=== PATIENT | male | born 1970 | race Caucasian/White ===

== ENCOUNTER 2020-01-17 11:07 | Emergency (ER) | payer MEDICARE, MEDICAID ==
--- NOTE | 2020-01-17 11:26 | EDM.PDOC ---
ED HPI GENERAL MEDICAL PROBLEM - General Chief Complaint: Chest Pain Stated Complaint: CHEST PAIN Time Seen by Provider: 01/17/20 11:13 Source of Information: Reports: Patient History Limitations: Reports: Other - History of Present Illness INITIAL COMMENTS - FREE TEXT/NARRATIVE: 49-year-old male presents with midsternal reproducible chest wall pain today. Pain is reproducible with palpation, mild, nonradiating, nonexertional. History is limited secondary to her intellectual disability. ROS: Limited secondary to intellectual disability PHYSICAL EXAM General: AOx4, GCS = 15, No distress HEENT: dry mucous membrane Neck: supple, no meningismus, no Kernig or Brudzinski Cardiac: S1S2 RRR chest wall: midsternal chest wall tenderness, 100% reproducible Respiratory: CTAB, no crackles or rales, no wheezing Abdomen: Soft, nontender, no rebound or guarding, nondistended, no pulsatile mass. Back: nontender Musculoskeletal: NVI distally, no deformity Neuro: No focal deficits, CN 2 - 12 WNL. chest pain Pain Score (Numeric/FACES): 6 - Related Data Allergies Allergy/AdvReac Type Severity Reaction Status Date / Time No Known Allergies Allergy Verified 01/17/20 11:21 Home Meds: Home Meds Aspirin [Halfprin] 81 mg PO DAILY 01/15/15 [History] Divalproex Sodium [Depakote] 1,000 mg PO BEDTIME 01/15/15 [History] Divalproex Sodium [Depakote] 500 mg PO QAM 01/15/15 [History] Lisinopril 5 mg PO DAILY 01/15/15 [History] Omeprazole [Prilosec] 20 mg PO ACBRK 01/15/15 [History] PARoxetine [Paxil] 20 mg PO BEDTIME 01/15/15 [History] QUEtiapine [SEROquel] 200 mg PO BEDTIME 01/15/15 [History] Simvastatin [Zocor] 40 mg PO BEDTIME 01/15/15 [History] Venlafaxine [Venlafaxine ER] 150 mg PO DAILY 01/15/15 [History] metFORMIN [Glucophage] 1,000 mg PO WITHDINNER 01/15/15 [History] polyethylene glycoL 3350 [MiraLAX] 17 gm PO DAILY 01/15/15 [History] risperiDONE [Risperdal] 1 mg PO BEDTIME 01/15/15 [History] Cariprazine HCl [Vraylar] 1.5 mg PO DAILY 01/17/20 [History] Levothyroxine 25 mcg PO DAILY 01/17/20 [History] Naproxen [Naprosyn] 375 mg PO BID #10 tab 01/17/20 [Rx] Past Medical History Other Psychiatric History: "Personality Disorder, Mental Retardation" ED ROS GENERAL - Review of Systems Review Of Systems: See Below (see dictation) ED EXAM, GENERAL - Physical Exam Exam: See Below (see dictation) EKG INTERPRETATION EKG Interpretation Comments: 77 Bpm, NSR, normal QRS interval, no STEMI. EKG and rhythm strip interpreted by me at 1112 Course - Vital Signs Last Recorded V/S: Last Vital Signs Temp 96.0 F L 01/17/20 11:16 Pulse 78 01/17/20 11:16 Resp 18 01/17/20 11:16 BP 123/74 01/17/20 11:16 Pulse Ox 97 01/17/20 11:16 - Orders/Labs/Meds Orders: Active Orders 24 hr Category Date Time Status EKG Documentation Completion [RC] STAT Care 01/17/20 11:21 Active - Re-Assessments/Exams Free Text/Narrative Re-Assessment/Exam: 01/17/20 1325 After treatments and a prolonged observation period in the ER, the patient improved clinically and is stable for discharge. I performed a repeat examination and the patient has not demonstrated any new abnormal findings. Patient exhibits normal vital signs. I advised the patient to return to the ER for reevaluation if symptoms worsened, and to follow up with their PCP within 2- 3 days. MEDICAL DECISION MAKING: I reviewed the patients past medical records, lab and radiographic findings. I discussed the case with the patient. My differential diagnosis included: ACS, pneumonia, PE, pneumothorax, chest wall pain, pulmonary edema/CHF, aortic dissection, pericarditis, intra-abdominal process. His chest pain is completely reproducible with palpation to mid sternum, his presentation is consistent with chest wall pain. Given the EKG and clinical history, I do not suspect pericarditis. There is no evidence of pneumothorax or infiltrate on CXR. Aortic dissection was considered, however the presenting symptoms were uncharacteristic of aortic dissection. Chest X-ray shows no evidence of mediastinal widening and there are strong, equal and symmetric pulses. Given the current presentation, I do not suspect aortic dissection. The patients history, chest X-ray, and exam do not suggest pulmonary edema/congestive heart failure. Pulmonary embolism was considered but felt unlikely due to the compendium of presenting elements leading to a low pre-test probability followed by a negative PERC rule. All 8 of the rule out PERC criteria were present including: Age<50, HR <100, O2 sat > 94%, no recent trauma/surgery, no hemoptysis, no exogenous hormone use, no clinical signs suggestive of DVT, no hx DVT/PE. Given the above, there is a <2% risk of PE and I feel that no further diagnostic testing is needed. Intra- abdominal pathology felt unlikely given benign/non tender abdominal exam. Acute coronary syndrome was considered but EKG is nonischemic, and the patient has a low HEART score. Based on this, my suspicion for ACS is low. Departure - Departure Time of Disposition: 13:26 Disposition: Home, Self-Care 01 Condition: Good Clinical Impression: Chest wall pain Prescriptions: Naproxen [Naprosyn] 375 mg PO BID #10 tab Instructions: Chest Wall Pain, [id number] Referrals: Kt Aldridge MD [Primary Care Provider] - Forms: ED Department Discharge Additional Instructions: The following information is given to patients seen in the emergency department who are being discharged to home. This information is to outline your options for follow-up care. We provide all patients seen in our emergency department with a follow-up referral. The need for follow-up, as well as the timing and circumstances, are variable depending upon the specifics of your emergency department visit. If you don't have a primary care physician on staff, we will provide you with a referral. We always advise you to contact your personal physician following an emergency department visit to inform them of the circumstance of the visit and for follow-up with them and/or the need for any referrals to a consulting specialist. The emergency department will also refer you to a specialist when appropriate. This referral assures that you have the opportunity for follow-up care with a specialist. All of these measure are taken in an effort to provide you with optimal care, which includes your follow-up. Under all circumstances we always encourage you to contact your private physician who remains a resource for coordinating your care. When calling for follow-up care, please make the office aware that this follow-up is from your recent emergency room visit. If for any reason you are refused follow-up, please contact the [facility] Emergency Department at and asked to speak to the emergency department charge nurse. If you do not have a primary care doctor, please follow up with the clinics below within 3-5 days. [facility] - Primary Care [address] [place] [address] [address] Sepsis Event Note (ED) - Evaluation Sepsis Screening Result: No Definite Risk - Focused Exam Vital Signs: Vital Signs Temp Pulse Resp BP Pulse Ox 01/17/20 11:16 96.0 F L 78 18 123/74 97 - My Orders Last 24 Hours: My Active Orders 01/17/20 11:21 EKG Documentation Completion [RC] STAT - Assessment/Plan Last 24 Hours: My Active Orders 01/17/20 11:21 EKG Documentation Completion [RC] STAT
--- NOTE | 2020-01-17 12:38 | CR ---
Chest: Portable view of the chest was obtained. Comparison: No prior chest imaging is available. Heart size and mediastinum are normal. Lungs are clear. Bony structures are grossly intact. Impression: 1. Nothing acute is seen on portable chest x-ray. Diagnostic code #1 This report was dictated in MDT
[2020-01-17 13:41] VITALS: BP 137/79; PULSE 85
== END 2020-01-17 13:35 | disposition home or self-care (01) ==
LOC: MW.ED 11:07
DX: R07.89 Other chest pain (principal); R07.2 Precordial pain; R00.2 Palpitations; Z79.82 Long term (current) use of aspirin; Z79.899 Other long term (current) drug therapy
CPT/HCPCS: 71045; 71045-26; 93005; 99284; 99285-25

== ENCOUNTER 2020-09-20 19:07 | Emergency (ER) | payer MEDICARE, OTHER, MEDICAID ==
--- NOTE | 2020-09-20 19:47 | EDM.PDOC ---
ED HPI GENERAL MEDICAL PROBLEM - General Chief Complaint: Lower Extremity Injury/Pain Stated Complaint: SWELLING AND BRUISING IN LT FOOT Time Seen by Provider: 09/20/20 19:08 Source of Information: Reports: Patient, Other (Caregiver) History Limitations: Reports: No Limitations - History of Present Illness INITIAL COMMENTS - FREE TEXT/NARRATIVE: HISTORY AND PHYSICAL: History of present illness: Patient is a 50-year-old male who presents emergency room today with his caregiver from the [facility] with concern of right foot injury that occurred 2 days ago. Patient states that one of the chairs from the dining room fell over and landed on top of his right foot. At the time, patient sustained an superficial abrasion which the caregiver states they have been treating with [id number] Neosporin and Band-Aids. Caregiver states starting tonight, they noticed more swelling and bruising over the area so were concerned that he possibly broke something in his foot. Patient states that he has been able to walk on it without difficulty. Denies any other symptoms or concerns. Patient is up-to-date on his tetanus vaccine. Patient denies fever, chills, chest pain, shortness of breath, or cough. Denies headache, neck stiff ness, change in vision, syncope, or near syncope. Denies nausea, vomiting, abdominal pain, diarrhea, constipation, or dysuria. Has not noted any blood in urine or stool. Patient has been eating and drinking appropriately. Review of systems: As per history of present illness and below otherwise all systems reviewed and negative. Past medical history: As per history of present illness and as reviewed below otherwise noncontributory. Surgical history: As per history of present illness and as reviewed below otherwise noncont ributory. Social history: See social history for further information Family history: As per history of present illness and as reviewed below otherwise noncontributory. Physical exam: General: Patient is alert, oriented, and in no acute distress. Patient sitting comfortably on exam table. Vitals stable and reviewed by me. HEENT: Atraumatic, normocephalic, pupils equal and reactive bilaterally, negative for conjunctival pallor or scleral icterus, mucous membranes moist, TMs normal bilaterally, throat clear, neck supple, nontender, trachea midline. No drooling or trismus noted. No meningeal signs. No hot potato voice noted. Lungs: Clear to auscultation, breath sounds equal bilaterally, chest nontender. Heart: S1S2, regular rate and rhythm without overt murmur Abdomen: Soft, nondistended, nontender. Negative for masses or hepatosplenomegaly. Negative for costovertebral tenderness. Pelvis: Stable nontender. Genitourinary: Deferred. Rectal: Deferred. Skin: Intact, warm, dry. No lesions or rashes noted. Extremities: The left dorsal foot is edematous with ecchymosis without erythema or increase warmth. There is a superficial abrasion noted to he left dorsal foot. Full ROM of the complete LLE without deficit/pain. DP/PT pulses grossly intact of the LUE with cap refill < 2 seconds. Otherwise, atraumatic, negative for cords or calf pain. Neurovascular unremarkable. Neuro: Awake, alert, oriented. Cranial nerves II through XII unremarkable. Cerebellum unremarkable. Motor and sensory unremarkable throughout. Exam nonfocal. Patient able to ambulate in the ED without difficulty and bear weight completely on the extremity. Notes: Signs and symptoms are prompt return to the ED thoroughly discussed with patient. Discussed importance for follow-up with a primary care provider. Voices understanding and is agreeable to plan of care. Denies any further questions or concerns at this time. Diagnostics: Foot/Ankle XR Therapeutics: None Prescription: None Impression: Foot injury, right Superficial abrasion Plan: 1. Rest, ice, elevate the affected extremity. You can apply ice 15 minutes on, 15 minutes off. 2. Tylenol and/or Ibuprofen as directed for pain management or discomfort. 3. Follow up with the primary care provider as discussed. Return to the ED as needed and as discussed. Definitive disposition and diagnosis as appropriate pending reevaluation and review of above. Right foot Pain Score (Numeric/FACES): 8 - Related Data Allergies Allergy/AdvReac Type Severity Reaction Status Date / Time No Known Allergies Allergy Verified 01/17/20 11:21 Home Meds: Home Meds Aspirin [Halfprin] 81 mg PO DAILY 01/15/15 [History] Divalproex Sodium [Depakote] 1,000 mg PO BEDTIME 01/15/15 [History] Divalproex Sodium [Depakote] 500 mg PO QAM 01/15/15 [History] Lisinopril 5 mg PO DAILY 01/15/15 [History] Omeprazole [Prilosec] 20 mg PO ACBRK 01/15/15 [History] PARoxetine [Paxil] 20 mg PO BEDTIME 01/15/15 [History] QUEtiapine [SEROquel] 200 mg PO BEDTIME 01/15/15 [History] Simvastatin [Zocor] 40 mg PO BEDTIME 01/15/15 [History] Venlafaxine [Venlafaxine ER] 150 mg PO DAILY 01/15/15 [History] metFORMIN [Glucophage] 1,000 mg PO WITHDINNER 01/15/15 [History] polyethylene glycoL 3350 [MiraLAX] 17 gm PO DAILY 01/15/15 [History] Cariprazine HCl [Vraylar] 1.5 mg PO DAILY 01/17/20 [History] Levothyroxine 25 mcg PO DAILY 01/17/20 [History] Past Medical History HEENT History: Reports: Impaired Vision Other Psychiatric History: "Personality Disorder, Mental Retardation" Endocrine/Metabolic History: Reports: Diabetes, Type II Review of Systems - Review of Systems Review Of Systems: Comprehensive ROS is negative, except as noted in HPI. ED EXAM, GENERAL - Physical Exam Exam: See Below (see dictation) Course - Vital Signs Last Recorded V/S: Last Vital Signs Temp 98.4 F 09/20/20 19:23 Pulse 97 09/20/20 20:30 Resp 18 09/20/20 20:30 BP 116/76 09/20/20 20:30 Pulse Ox 98 09/20/20 20:30 Departure - Departure Time of Disposition: 20:19 Disposition: Home, Self-Care 01 Clinical Impression: Foot injury Qualifiers: Encounter type: initial encounter Laterality: right Qualified Code(s): S99.921A - Unspecified injury of right foot, initial encounter - Discharge Information Instructions: Crush Injury of the Foot, [id number] Referrals: Kt Aldridge MD [Primary Care Provider] - Forms: ED Department Discharge Additional Instructions: The following information is given to patients seen in the emergency department who are being discharged to home. This information is to outline your options for follow-up care. We provide all patients seen in our emergency department with a follow-up referral. The need for follow-up, as well as the timing and circumstances, are variable depending upon the specifics of your emergency department visit. If you don't have a primary care physician on staff, we will provide you with a referral. We always advise you to contact your personal physician following an emergency department visit to inform them of the circumstance of the visit and for follow-up with them and/or the need for any referrals to a consulting specialist. The emergency department will also refer you to a specialist when appropriate. This referral assures that you have the opportunity for follow-up care with a specialist. All of these measure are taken in an effort to provide you with optimal care, which includes your follow-up. Under all circumstances we always encourage you to contact your private physician who remains a resource for coordinating your care. When calling for follow-up care, please make the office aware that this follow-up is from your recent emergency room visit. If for any reason you are refused follow-up, please contact the [facility] Emergency Department at and asked to speak to the emergency department charge nurse. [facility] [address] [place] [id number] [facility] [address] [place] [id number] 1. Rest, ice, elevate the affected extremity. You can apply ice 15 minutes on, 15 minutes off. 2. Tylenol and/or Ibuprofen as directed for pain management or discomfort. 3. Follow up with the primary care provider as discussed. Return to the ED as needed and as discussed. Sepsis Event Note (ED) - Evaluation Sepsis Screening Result: No Definite Risk
--- NOTE | 2020-09-20 20:07 | CR ---
HISTORY: Pain, swelling, and bruising. COMPARISON: None available. FINDINGS: The right foot is examined with AP and lateral views. There is no sign of fracture or dislocation. There is mild soft tissue swelling of the dorsal anterior foot, overlying the metatarsals, consistent with the history of swelling. There is no sign of any gas in the soft tissues or radiopaque foreign body. There are moderate plantar and small posterior calcaneal spurs. There is mild ossification of the distal Achilles tendon. IMPRESSION: Mild dorsal forefoot soft tissue swelling with no sign of any injury to the underlying metatarsals. Moderate plantar and small posterior calcaneal spurs. Dictated by Bhanu Cagle MD @ Sep 20 2020 8:03PM Signed by Dr. Bhanu Cagle @ Sep 20 2020 8:05PM
--- NOTE | 2020-09-20 20:09 | CR ---
HISTORY: Pain, swelling, and bruising. COMPARISON: None available. FINDINGS: AP, lateral and oblique views of the right ankle were obtained for a total of three views. There is no sign of fracture or dislocation. The ankle mortise is intact. The talar dome is intact. There is no sign of a joint effusion. There is mild diffuse soft tissue swelling with no sign of any soft tissue gas or radiopaque foreign body. There are moderate plantar and small posterior calcaneal spurs. There is mild ossification of the distal Achilles tendon. IMPRESSION: No sign of acute osseous injury. Mild diffuse soft tissue swelling. Moderate plantar and small posterior calcaneal spurs. Dictated by Bhanu Cagle MD @ Sep 20 2020 8:03PM Signed by Dr. Bhanu Cagle @ Sep 20 2020 8:06PM
[2020-09-20 20:35] VITALS: BP 116/76; PULSE 97
== END 2020-09-20 20:30 | disposition home or self-care (01) ==
LOC: MW.ED 19:07
DX: S90.811A Abrasion, right foot, initial encounter (principal); E11.9 Type 2 diabetes mellitus without complications; Z79.82 Long term (current) use of aspirin; Z79.84 Long term (current) use of oral hypoglycemic drugs; Z79.899 Other long term (current) drug therapy; W20.8XXA Other cause of strike by thrown, projected or falling object, initial encounter
CPT/HCPCS: 73610-26-RT; 73610-RT; 73620-26-RT; 73620-RT; 99282; 99283-25

== ENCOUNTER 2022-04-03 10:59 | Observation (INO) | payer MEDICARE, MEDICAID ==
[2022-04-03] MEDS ORDERED: VANCOmycin 1.75 GM/350 ML 350 ML IV ONE (12:40)
[2022-04-03] MEDS ORDERED: cefTRIAXone 1 GM in Sodium Chloride 0.9% 50 ML IV ONE ×2 (15:15→21:18)
[2022-04-03] MEDS ORDERED: QUEtiapine 100 MG Tab PO ONE (21:18)
[2022-04-03] MEDS ORDERED: Simvastatin 40 MG Tab PO ONE (21:18)
[2022-04-03] MEDS ORDERED: Divalproex Sodium Delayed-Release 500 MG Tab.CR PO ONE (21:18)
[2022-04-03] MEDS ORDERED: PARoxetine 20 MG Tab PO ONE (21:18)
[2022-04-04] MEDS ORDERED: Omeprazole 20 MG Cap.CR PO ONE (06:42)
[2022-04-04] MEDS ORDERED: Levothyroxine 25 MCG Tab PO ONE (06:42)
[2022-04-04] MEDS ORDERED: Insulin Aspart 100 Units/ML 3 ML Pen SUBCUT ONE (07:50)
[2022-04-04] MEDS ORDERED: Lisinopril 5 MG Tab PO ONE (09:00)
[2022-04-04] MEDS ORDERED: Venlafaxine 75 MG Cap.ER PO ONE ×2 (09:00)
[2022-04-04] MEDS ORDERED: Divalproex Sodium Delayed-Release 500 MG Tab.CR PO ONE ×2 (09:00→21:00)
[2022-04-04] MEDS ORDERED: Simvastatin 40 MG Tab PO ONE (21:00)
[2022-04-04] MEDS ORDERED: PARoxetine 20 MG Tab PO ONE (21:00)
[2022-04-04] MEDS ORDERED: QUEtiapine 100 MG Tab PO ONE (21:00)
[2022-04-05] MEDS ORDERED: Venlafaxine 75 MG Cap.ER PO ONE ×2 (09:00)
[2022-04-05] MEDS ORDERED: Levothyroxine 25 MCG Tab PO ONE (09:00)
[2022-04-05] MEDS ORDERED: Divalproex Sodium Delayed-Release 500 MG Tab.CR PO ONE ×2 (09:00→21:00)
[2022-04-05] MEDS ORDERED: Lisinopril 5 MG Tab PO ONE (09:00)
[2022-04-05] MEDS ORDERED: cefTRIAXone 1 GM in Sodium Chloride 0.9% 50 ML IV ONE (19:00)
[2022-04-05] MEDS ORDERED: PARoxetine 20 MG Tab PO ONE (21:00)
[2022-04-05] MEDS ORDERED: Simvastatin 40 MG Tab PO ONE (21:00)
[2022-04-05] MEDS ORDERED: QUEtiapine 100 MG Tab PO ONE (21:00)
[2022-04-06] MEDS ORDERED: Levothyroxine 25 MCG Tab PO ONE (06:30)
[2022-04-06] MEDS ORDERED: Lisinopril 5 MG Tab PO ONE (09:00)
[2022-04-06] MEDS ORDERED: Divalproex Sodium Delayed-Release 500 MG Tab.CR PO ONE ×2 (09:00→21:00)
[2022-04-06] MEDS ORDERED: Venlafaxine 75 MG Cap.ER PO ONE ×2 (09:00)
[2022-04-06] MEDS ORDERED: cefTRIAXone 1 GM in Sodium Chloride 0.9% 50 ML IV ONE (19:00)
[2022-04-06] MEDS ORDERED: QUEtiapine 100 MG Tab PO ONE (21:00)
[2022-04-06] MEDS ORDERED: Simvastatin 40 MG Tab PO ONE (21:00)
[2022-04-06] MEDS ORDERED: PARoxetine 20 MG Tab PO ONE (21:00)
[2022-04-07] MEDS ORDERED: Levothyroxine 25 MCG Tab PO ONE (06:30)
[2022-04-07] MEDS ORDERED: Divalproex Sodium Delayed-Release 500 MG Tab.CR PO ONE (09:00)
[2022-04-07] MEDS ORDERED: Lisinopril 5 MG Tab PO ONE (09:00)
[2022-04-07] MEDS ORDERED: Venlafaxine 75 MG Cap.ER PO ONE (09:00)
[2022-04-07] MEDS ORDERED: cefTRIAXone 1 GM in Sodium Chloride 0.9% 50 ML IV ONE (19:00)
== END 2022-04-07 14:10 | disposition home or self-care (01) ==
LOC: MW.ED 10:59 → MW.ZCENSUS 15:13
DX: L03.113 Cellulitis of right upper limb (principal); E11.9 Type 2 diabetes mellitus without complications; Z79.82 Long term (current) use of aspirin; Z79.84 Long term (current) use of oral hypoglycemic drugs
CPT/HCPCS: 73130; A9270; J0696; J1815; J3370; J7050; 99283